=== PATIENT | male | born 1955 | race African-American/Black ===

== ENCOUNTER 2021-11-25 20:26 | Emergency (ER) | payer MEDICARE, MEDICAID ==
[~2021-11-25] VITALS: Ht 165.1 cm; Wt 63.9 kg
[2021-11-25 22:00] VITALS: BP 220/127
== END 2021-11-26 07:42 | disposition left against medical advice (07) ==
LOC: ER 20:26
DX: S01.552A Open bite of oral cavity, initial encounter (principal); Y93.89 Activity, other specified; I10 Essential (primary) hypertension; X58.XXXA Exposure to other specified factors, initial encounter; Y92.89 Other specified places as the place of occurrence of the external cause
CPT/HCPCS: 99281

== ENCOUNTER 2022-04-29 10:10 | Emergency (ER) | payer MEDICARE ==
[~2022-04-29] VITALS: Ht 175.3 cm; Wt 70.5 kg
[2022-04-29] MEDS ORDERED: ONDANSETRON HCL 4MG/2ML INJ IV STA (10:32)
[2022-04-29] MEDS ORDERED: CLONIDINE 0.1MG TABLET PO ONE (10:45)
[2022-04-29 11:27] LABS: HEMATOCRIT. 40.6 % (42.0-52.0); HEMOGLOBIN. 13.3 g/dL (14.0-18.0); MEAN CORPUSCULAR HEMOGLOBIN 27.8 pg (28.0-32.0); MEAN CORPUSCULAR VOLUME 84.8 fL (80.0-94.0); MEAN PLATELET VOLUME 8.5 fl (7.4-10.4); PLATELET 253 x1000/uL (130-400); RED BLOOD CELL COUNT 4.79 mill/uL (4.7-6.1); RED CELL DISTRIBUTION WIDTH 15.7 % (11.6-14.6)
[2022-04-29 11:35] LABS: CHLORIDE 106 mEq/L (98-107)
[2022-04-29 11:44] LABS: ETHANOL BLOOD < 10 mg/dL
[2022-04-29 12:53] LABS: CLARITY URINE CLEAR (CLEAR); COLOR URINE YELLOW (YELLOW); KETONES URINE TRACE (NEGATIVE); LEUKOCYTE ESTERASE URINE NEGATIVE (NEGATIVE); NITRITE URINE NEGATIVE (NEGATIVE); OCCULT BLOOD URINE NEGATIVE (NEGATIVE); PH URINE 6.5 (4.5-8.0); PROTEIN URINE 1+ (NEGATIVE); SPECIFIC GRAVITY URINE 1.018 (1.005-1.030)
[2022-04-29 13:50] LABS: PLATELET ESTIMATE NORMAL
[2022-04-29] MEDS ORDERED: HYDR25TA MT (14:18)
[2022-04-29] MEDS ORDERED: ONDA4TAB50 MT (14:18)
[2022-04-29 14:57] LABS: *AMPHETAMINES SCREEN URINE PRESUMTIVE POSITIVE (NEGATIVE); *BARBITURATES SCREEN URINE NEGATIVE (NEGATIVE); *BENZODIAZEPINES SCREEN URINE NEGATIVE (NEGATIVE); *COCAINE SCREEN URINE PRESUMTIVE POSITIVE (NEGATIVE); CANNABINOID URINE SCREEN PRESUMTIVE POSITIVE (NEGATIVE); METHADONE URINE SCREEN NEGATIVE (NEGATIVE); OPIATES URINE SCREEN NEGATIVE (NEGATIVE); PHENCYCLIDINE URINE SCREEN NEGATIVE (NEGATIVE)
[2022-04-29 15:15] VITALS: BP 175/117
== END 2022-04-29 15:16 | disposition home or self-care (01) ==
LOC: ER 10:28
DX: I10 Essential (primary) hypertension (principal); Z91.128 Patient's intentional underdosing of medication regimen for other reason; F15.10 Other stimulant abuse, uncomplicated; F16.10 Hallucinogen abuse, uncomplicated; F14.10 Cocaine abuse, uncomplicated; F12.10 Cannabis abuse, uncomplicated; D72.825 Bandemia; E87.6 Hypokalemia
CPT/HCPCS: 36415; 71045; 80053; 80305; 80320; 81003; 84484; 85025; 99285; G0480

== ENCOUNTER 2023-05-24 10:02 | Emergency (ER) | payer MEDICARE, MEDICAID ==
[~2023-05-24] VITALS: Ht 175.3 cm; Wt 77.0 kg
[~2023-05-24 10:02] MED LIST: HYDR25TA MT; ONDA4TAB50 MT
[2023-05-24 10:06] VITALS: BP 146/86; PULSE 78; RESP 18; TEMP 98.4; O2SAT 99
[2023-05-24] MEDS ORDERED: LIDOCAINE HCL/PF 1% 10 MG/ML 5ML VIAL INFIL ONE (10:30)
[2023-05-24] MEDS ORDERED: BACITRACIN ZINC OINT UDPKT TOP ONE (10:30)
[2023-05-24] MEDS ORDERED: TETANUS, DIPHTHERIA, PERTUSSIS VAC/PF 0.5ML (>10YR OLD) IM ONE (10:30)
[2023-05-24] MEDS ORDERED: TRANEXAMIC ACID 1,000 MG/10 ML IV ONE (15:00)
== END 2023-05-24 18:50 | disposition home or self-care (01) ==
LOC: ER 10:24
DX: S01.112A Laceration without foreign body of left eyelid and periocular area, initial encounter (principal); S09.90XA Unspecified injury of head, initial encounter; I10 Essential (primary) hypertension; F15.10 Other stimulant abuse, uncomplicated; W18.39XA Other fall on same level, initial encounter; Y93.89 Activity, other specified; Y92.89 Other specified places as the place of occurrence of the external cause; Y99.8 Other external cause status
CPT/HCPCS: 70450; 90715; 12013; 90471; 96374; 99285; J3490; Z7610 ×3

== ENCOUNTER 2023-09-17 00:33 | Emergency (ER) | payer MEDICARE, MEDICAID ==
[~2023-09-17] VITALS: Ht 170.2 cm; Wt 85.0 kg
[2023-09-17 00:36] VITALS: BP 160/101; PULSE 99; RESP 20; TEMP 98.2; O2SAT 98
[2023-09-17] MEDS ORDERED: CEPH500C2 MT (03:35)
[2023-09-17] MEDS ORDERED: ONDA4TAB50 MT (03:37)
[2023-09-17] MEDS ORDERED: SIME125C MT (03:37)
== END 2023-09-17 03:46 | disposition home or self-care (01) ==
LOC: ER 01:11
DX: L03.116 Cellulitis of left lower limb (principal); F15.90 Other stimulant use, unspecified, uncomplicated; I10 Essential (primary) hypertension
CPT/HCPCS: 99283